=== PATIENT | female | born 1955 | race Caucasian/White ===

== ENCOUNTER 2018-10-28 20:21 | Emergency (ER) | payer BC ==
[~2018-10-28] VITALS: Ht 175.3 cm; Wt 69.3 kg
[2018-10-28 20:33] VITALS: Ht 175.3 cm; Wt 69.3 kg
[2018-10-28 21:46] VITALS: BP 155/98; PULSE 74; RESP 19
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
== END 2018-10-28 21:47 | disposition home or self-care (01) ==
LOC: E/R 20:21
DX: R07.89 Other chest pain (principal)
CPT/HCPCS: 71045; 93005